=== PATIENT | female | born 1990 | race Caucasian/White ===

== ENCOUNTER 2018-01-02 09:43 | Inpatient (IN) | payer BC, OTHER ==
--- NOTE | 2018-01-02 18:58 | PDOC.LDHP ---
Labor and Delivery H&P Chief complaint: scheduled induction HPI: 27 yo G1 @ 40w0d by LMP c/w 10 week sono who presents for IOL for concern of possible developing FGR dx @ 39 weeks (EFW 19%, however, all measurements other than HC are < 10%). Antepartum course otherwise benign. Current gestational age (weeks): 40 Due date: 01/02/18 Dating criteria: last menstrual period Grav: 1 Para: 0 Current complications: other (Possible FGR vs constitutionally SGA) Abnormal US findings: No Past Medical History: Denies Current medications: none Previous surgical history: none Allergies/Adverse Reactions: Allergies Allergy/AdvReac Type Severity Reaction Status Date / Time No Allergy Information Allergy Verified 01/03/18 00:02 Available - Physical Exam Vital signs reviewed and normal: yes General: NAD Heart: RRR Lungs: nonlabored breathing Abdomen: gravid Extremeties: no edema FHT: category 1 [place] contractions every: q5 min per pt, no assessing well on monitor - Vaginal Exam cm dilated: 2 (balloon still in place ) - OB Labs Blood type: A RH: positive Antibody Screen: negative HIV: negative RPR: negative HEPSAg: negative 1 hour GCT: negative GBS: negative Urine drug screen: not done Rubella: immune - Assessment 40w0d IUP IOL for concern for possible developing FGR. - Plan Plan: admit to L&D, cervical ripening, informed consent obtained, anesthesia consult for pain management -: Will allow pt to ambulate with balloon as fetus has been cat 1 last night .
[2018-01-02] MEDS ORDERED: Carboprost 250 MCG/ML AMP IM PRN (22:36)
[2018-01-02] MEDS ORDERED: Promethazine HCl 25 MG/ML VIAL IM PRN (22:36)
[2018-01-02] MEDS ORDERED: Acetaminophen 500 MG TAB PO PRN (22:36)
[2018-01-02] MEDS ORDERED: NS / Oxytocin 40 units/1000ml 1,000 ML IV PRN (22:36)
[2018-01-02] MEDS ORDERED: HYDROcodone/Acetaminophen 5/325 mg Tablet PO PRN (22:36)
[2018-01-02] MEDS ORDERED: Butorphanol Tartrate 1 MG/ML VIAL SLOW IVP PRN (22:36)
[2018-01-02] MEDS ORDERED: Lidocaine 1% (PF) 30 ML VIAL SC PRN (22:36)
[2018-01-02] MEDS ORDERED: Methylergonovine 0.2 MG/ML VIAL IM PRN (22:36)
[2018-01-02] MEDS ORDERED: Ondansetron HCl/PF 4 MG/2 ML Vial IVP PRN (22:36)
[2018-01-02] MEDS ORDERED: Ibuprofen 800 MG TAB PO PRN (22:36)
[2018-01-02] MEDS ORDERED: Diphenoxylate HCl/Atropine Tablet PO PRN (22:36)
[2018-01-02] MEDS: Lactated Ringer's 1,000 ML IV SCH (22:36)
[2018-01-02] MEDS ORDERED: Misoprostol 200 MCG TAB PR PRN (22:36)
[2018-01-02 23:25] LABS: Hemoglobin 12.2 g/dL (12.0-16.0); Mean Corpuscular HGB CONC 33.6 g/dL (32.0-36.0); Mean Corpuscular Hemoglobin 30.8 pg (27.0-31.0); Mean Corpuscular Volume 91.5 fL (78.0-98.0); Mean Platelet Volume 6.8 fL (7.4-10.4); Platelet Count 413 thou/uL (130-400); RBC Distribution Width 12.1 % (11.5-14.5); Red Blood Cell (RBC) Count 3.95 mill/uL (4.20-5.40); White Blood Cell (WBC) Count 11.3 thou/uL (4.8-10.8)
[2018-01-03 00:07] LABS: HBSAg Index 0.17 S/CO (0-0.99); HIV (1/2) Antibody/Antigen Non-Reactive (NonReactive); HIV 1/2 INDEX 0.06 S/CO (<1.00); Hep B Surf Ag Non-Reactive S/CO (NonReactive); Syphilis Antibody Nonreactive (Nonreactive); Syphilis Antibody Index 0.04 S/CO (<1.00 Non-Reactive)
--- NOTE | 2018-01-03 03:24 | OP ---
TIME OF EVALUATION: 2340 hours until about 2355 hours. TIME OF BALLOON PLACEMENT: 2345 hours. COOK CERVICAL BALLOON TRANSVAGINAL PLACEMENT In brief, I was asked by Ofe Calderon D.O., the patient's physician, to please place a Cook cervic al balloon for cervical ripening. In brief, this is a primigravida, who is at term with a cervical e xam of /-3. I saw the patient at bedside at 2340 hours and discussed with her the benefits of [place] cervical balloon and its contraindications. No contraindications exist. heart tones were 1 40s and reactive. After explaining to the patient the Cook cervical balloon, the patient agreed to p krishna. I used a Graves metal speculum to visualize the cervix. The partner visualized the cervix with me after speculum placement. I then wiped the cervix clean with sterile castile soap. This wa s swabbed with a ring forceps and some 4 x 4s. Next, after confirming no vaginal lesions, no vaginal bleeding, and no evidence of ruptured membranes, I placed the Cook cervical balloon transcervically with ring forceps. No rupture of membranes or other complications occurred. I then placed 40 mL of sterile saline into the uterine balloon. I then pulled the second deflated balloon, which was her va ginal inflation out of the cervix per IFU instructions. At this time, I removed the speculum. I krishna alisha 20 mL into the vaginal balloon per protocol. At this time, the patient stated that she felt no p ain and Tg, the patient's nurse who was present for the procedure, stated that she would continue the "top-off" procedure. A 40 additional mL will be placed into the uterine balloon and 60 mL into the vaginal balloon for 80 mL total per balloon. The patient tolerated the procedure well and was co ntent for the procedure.
[2018-01-03] MEDS: Lactated Ringer's 1,000 ML IV SCH ×3 (04:51→13:21)
--- NOTE | 2018-01-03 10:23 | PDOC.LDPN ---
Labor & Delivery Progress Note - Subjective Subjective: comfortable - Objective Vital signs reviewed and normal: yes General: NAD, resting Uterine fundus: non tender SVE: 3-4 FHT: category 1 (130s, mod ginny, +accels, no decels ) [place] contractions every: q 8-9 min Other exam findings: Cook balloon still in place - Assessment (1) 40 weeks gestation of Code(s): Z3A.40 - 40 WEEKS GESTATION OF Current Visit: Yes Status : Acute (2) Encounter for induction of labor Code(s): Z34.90 - ENCNTR FOR SUPRVSN OF NORMAL , UNSP, UNSP TRIMESTER Current Visit: Yes Status: Acute -: Balloon due for removal @ 1145. Reviewed with pt that ctx are minimal. Recommend that start pitocin with balloon and plan for AROM at next appt. Pt considering. Continue plan of care.
[2018-01-03] MEDS ORDERED: NS w/ Oxytocin 10 units 500 ML IV SCH (10:30)
[2018-01-03] MEDS ORDERED: DISCONTINUE ALL PREVIOUS NARCOTICS FS SCH (10:45)
--- NOTE | 2018-01-03 11:09 | PDOC.LDPN ---
Labor & Delivery Progress Note - Subjective Subjective: comfortable - Objective Vital signs reviewed and normal: yes General: NAD Uterine fundus: non tender SVE: balloon removed Dilation: 5 Effacement: 50% Station: -2 FHT: category 2 [place] contractions every: rare ctx AROM: meconium stained fluid IUPC placed: yes FSE placed: yes Resuscitative measures: maternal oxygen, maternal position change - Assessment (1) 40 weeks gestation of Code(s): Z3A.40 - 40 WEEKS GESTATION OF Current Visit: Yes Status : Acute (2) Encounter for induction of labor Code(s): Z34.90 - ENCNTR FOR SUPRVSN OF NORMAL , UNSP, UNSP TRIMESTER Current Visit: Yes Status: Acute Plan: resuscitative measures -: Called regarding prolonged decel with boogie to 50s with resolution with position changes. Pitocin had not been started. Balloon removed and AROM done. Internals placed. Discussed continuous monitoring with pt and internals.
[2018-01-03] MEDS ORDERED: Promethazine HCl 25 MG/ML VIAL IM PRN (13:12)
[2018-01-03] MEDS ORDERED: diphenhydrAMINE 50 MG/ML VIAL IVP PRN (13:12)
[2018-01-03] MEDS ORDERED: Ondansetron HCl/PF 4 MG/2 ML Vial IVP PRN (13:12)
[2018-01-03] MEDS ORDERED: Acetaminophen 325 MG TAB PO PRN (13:12)
[2018-01-03] MEDS ORDERED: Eucerin (Mineral Oil/Petrolatum,White) 30 gm Jar TOP PRN (13:12)
[2018-01-03] MEDS ORDERED: ePHEDrine/0.9% NaCl/PF SYRINGE 50 mg/10 ml SLOW IVP PRN (13:12)
[2018-01-03] MEDS ORDERED: Lactated Ringer's 500 ML IV PRN (13:12)
[2018-01-03] MEDS ORDERED: Naloxone HCl 0.4 mg/ml Vial IVP PRN ×2 (13:12)
[2018-01-03] MEDS ORDERED: fentaNYL Citrate/PF 400 MCG, Bupivacaine 0.5% 20 ML in Sodium Chloride 0.9% 72 ML EPIDURAL SCH (13:15)
[2018-01-03] MEDS ORDERED: Communication Order-Pharmacy FS SCH (13:15)
[2018-01-03] MEDS: Bupivacaine 0.5% 20 ML, fentaNYL Citrate/PF 400 MCG in Sodium Chloride 0.9% 72 ML EPIDURAL SCH ×2 (13:22→20:05)
--- NOTE | 2018-01-03 16:00 | PDOC.LDPN ---
Labor & Delivery Progress Note - Subjective Subjective: comfortable - Objective Vital signs reviewed and normal: yes General: NAD, resting Uterine fundus: non tender Dilation: 5 Effacement: 75% Station: -2 FHT: category 2 (140s, minimal ginny, + accel with scalp stimulation, early decels ) [place] contractions every: q2-3 min, adequate MVUs - Assessment (1) 40 weeks gestation of Code(s): Z3A.40 - 40 WEEKS GESTATION OF Current Visit: Yes Status : Acute (2) Encounter for induction of labor Code(s): Z34.90 - ENCNTR FOR SUPRVSN OF NORMAL , UNSP, UNSP TRIMESTER Current Visit: Yes Status: Acute -: Overall, fetus reassuring. Continue pitocin. Adequate MVUs now.
[2018-01-04] MEDS ORDERED: Bicitra 30 ML UDCUP ONE (00:43)
[2018-01-04] MEDS ORDERED: CEFAZOLIN/Water 2 GM/20 ML SYRINGE ONE (00:43)
[2018-01-04] MEDS ORDERED: Lidocaine 2% 10 ML INJ ONE (00:49)
[2018-01-04] MEDS ORDERED: Oxytocin 10 UNITS/ML VIAL ONE (00:50)
[2018-01-04] MEDS ORDERED: Ondansetron HCl/PF 4 MG/2 ML Vial ONE (00:50)
[2018-01-04] MEDS ORDERED: Morphine PF 1 MG/ML SYR ONE (00:50)
--- NOTE | 2018-01-04 01:08 | PDOC.LDPN ---
Labor & Delivery Progress Note - Subjective Subjective: comfortable - Objective Vital signs reviewed and normal: yes General: NAD, resting Uterine fundus: non tender Dilation: 5-6 per my exam Effacement: 75% Station: -1 FHT: category 2 (150s, mod ginny, +accels, several late decels ) [place] contractions every: q2-4 min Other exam findings: suspect asynclytic Resuscitative measures: maternal oxygen, maternal IV fluids, maternal position change - Assessment (1) 40 weeks gestation of Code(s): Z3A.40 - 40 WEEKS GESTATION OF Current Visit: Yes Status : Acute (2) Encounter for induction of labor Code(s): Z34.90 - ENCNTR FOR SUPRVSN OF NORMAL , UNSP, UNSP TRIMESTER Current Visit: Yes Status: Acute -: Arrest of dilation @ 8 cm for > 8 hours. Adequate MVUS for majority of time without change and fetus displays episodes of intolerance to adequate labor requiring d/c of pitocin. Reviewed with pt and family and recommend a PLTCS, pt amenable.
[2018-01-04] MEDS ORDERED: Ondansetron HCl/PF 4 MG/2 ML Vial IVP PRN ×4 (01:17→05:51)
[2018-01-04] MEDS ORDERED: HYDROmorphone 2 MG/ML VIAL SLOW IVP PRN (01:17)
[2018-01-04] MEDS ORDERED: Meperidine HCl/PF 25 MG/ML VIAL SLOW IVP PRN (01:17)
[2018-01-04] MEDS ORDERED: Promethazine HCl 25 MG/ML VIAL IM PRN ×3 (01:18→05:51)
[2018-01-04] MEDS ORDERED: diphenhydrAMINE 50 MG/ML VIAL IVP PRN ×2 (01:18→05:51)
[2018-01-04] MEDS ORDERED: Ketorolac Tromethamine 30 MG/ML VIAL IVP PRN ×2 (01:18→05:51)
[2018-01-04] MEDS ORDERED: Eucerin (Mineral Oil/Petrolatum,White) 30 gm Jar TOP PRN (01:18)
[2018-01-04] MEDS ORDERED: Naloxone HCl 0.4 mg/ml Vial IV PRN ×4 (01:18→05:51)
[2018-01-04] MEDS ORDERED: Promethazine HCl 25 MG SUPP PR PRN ×2 (01:18→05:51)
[2018-01-04] MEDS ORDERED: Naloxone HCl 0.4 mg/ml Vial IVP PRN ×2 (01:18)
[2018-01-04] MEDS ORDERED: Ketorolac Tromethamine 30 MG/ML VIAL IVP SCH (01:30)
[2018-01-04] MEDS ORDERED: Communication Order-Pharmacy FS SCH (01:30)
[2018-01-04 01:54] LABS: Actual Bicarbonate (HCO3a) 24.5 mEq/L (22-28); Analyzer IN Cardio OR; Base Excess (BEa) -5.6 mEq/L (-2.0 to +3.0)
[2018-01-04] MEDS ORDERED: Azithromycin 500 MG in Sodium Chloride 0.9% 250 ML 250 ML IVPB SCH (02:00)
--- NOTE | 2018-01-04 02:07 | PDOC.OPDEL ---
OB Operative/Delivery Note Delivery Dr/Surgeon: Ofe Calderon DO Assist: Ray King MD Pre-Delivery Diagnosis: medically indicated induction (concern for FGR) Procedure/Post Delivery Dx: primary low transverse CS Weeks gestation: 40 Anesthesia: epidural - Findings A Sex: male - 1 min: 1 - 5 min: 5 - Additional Findings/Plan Placenta delivered: spontaneous Repaired Obstetrical Laceration: right labial findings: low transverse hysterotomy without extension, normal uterus, normal tubes, normal ovaries Estimated blood loss: QBL 390 cc Compilations/Other Findings: Infant in cephalic presentation with tight nuchal cord x 3 Thick meconium stained amniotic fluid Normal appearing placenta Post delivery plan: routine recovery (Dictation [id number])
[2018-01-04] MEDS ORDERED: Lanolin Ointment 7 GM TUBE TOP PRN (04:50)
[2018-01-04] MEDS ORDERED: NS / Oxytocin 40 units/1000ml 1,000 ML IV SCH (04:50)
[2018-01-04] MEDS ORDERED: Lactated Ringer's 1,000 ML IV SCH (04:50)
[2018-01-04] MEDS ORDERED: Bisacodyl 10 MG SUPP PR PRN (04:50)
[2018-01-04] MEDS ORDERED: Measles/Mumps/Rubella 10 MCG/0.5 ML VIAL SC ONE (04:50)
[2018-01-04] MEDS ORDERED: diphenhydrAMINE 25 MG CAP PO PRN (04:50)
[2018-01-04] MEDS ORDERED: Meperidine HCl/PF 25 MG/ML VIAL IM PRN (04:50)
[2018-01-04] MEDS ORDERED: HYDROcodone/Acetaminophen 5/325 mg Tablet PO PRN (04:50)
[2018-01-04] MEDS ORDERED: Adacel (T-DAP) 0.5 ML VIAL IM ONE (04:50)
[2018-01-04] MEDS ORDERED: Zolpidem Tartrate 5 MG TAB PO PRN (04:50)
[2018-01-04] MEDS: Ibuprofen 800 MG TAB PO SCH ×3 (05:49→20:39)
[2018-01-04] MEDS ORDERED: Hydrocerin (Eucerin) Cream 120 gm Jar TOP PRN (05:51)
[2018-01-04] MEDS ORDERED: NO PO,IM,IV OR SC NARCOTICS FOR 12HR EXCEPT BY ANESTHESIA PO SCH (05:51)
--- NOTE | 2018-01-04 08:35 | OP ---
PREOPERATIVE DIAGNOSES: 1. A 40-week intrauterine . 2. Concern for growth restriction. 3. Category 2 heart tracing. 4. Arrest of dilation at POSTOPERATIVE DIAGNOSES: 1. A 40-week intrauterine . 2. Small gestational age. 3. Category 2 heart tracing. 4. Arrest of dilation 5. Tight Nuchal cord x3. PROCEDURE: Primary low transverse delivery via Pfannenstiel skin incision. SURGEON: Ofe Calderon DO VENEER SLICING MACHINE OPERATOR: Ray King MD COMPLICATIONS: None. QUANTITATIVE BLOOD LOSS: 390 mL IV FLUIDS: 1400 mL URINE OUTPUT: 400 mL ANESTHESIA: Epidural with Duramorph. FINDINGS: Normal appearing uterus, fallopian tubes, and ovaries bilaterally. Thick meconium stained amniotic fluid. Viable male infant in cephalic presentation with a tight nuchal cord x3. Apgars 1, 5, and 8. Normal appearing placenta with a thin umbilical cord. INDICATIONS FOR THE PROCEDURE: Ms. Stacy Grant is a 27-year-old at 40 weeks and 0 day with a recent diagnosis of concern for possible growth restriction and was undergoing an induction of labor. The patient underwent cervical ripening with Cook balloon, followed by Pitocin augmentation. Throughout her labor course, the fetus displayed intermittent category 2 heart rate tracings with intermittent late decelerations that would resolve with position changes, fluid bolus and/or temporary discontinuation of the Pitocin. She remained unchanged for approximately 8 hours and was recommended for primary delivery due to arrest of dilation and category 2 tracing prohibiting further augmentation of labor. PROCEDURE IN DETAIL: The patient was brought to the operating room. She previously had an epidural which was additionally dosed and had a Hinton catheter in place. She was placed in supine position with a leftward tilt. heart tones were assessed in approximately 150s in the operating room. She was then prepped and draped in the sterile fashion. An official timeout was performed. The patient was given Ancef preoperatively for surgical prophylaxis and will receive azithromycin postoperatively for surgical prophylaxis. Anesthesia was assessed and proved to be adequate. A Pfannenstiel skin incision was made using the scalpel and this was carried down to the underlying fascial layer. The fascia was then incised in the midline and was extended bilaterally using West scissors. The superior aspect of the fascial incision was grasped using Karly clamps, tented upward and dissected free from the underlying rectus abdominis muscle and the same was performed to the inferior aspect of the fascial incision. The rectus abdominis muscles were bluntly and the peritoneum was entered in bluntly. Dung O retractor was then placed into the abdomen. A low transverse hysterotomy was made using the scalpel and the amniotic membranes were ruptured using blunt dissection, noting thick meconium amniotic fluid. The was then delivered in cephalic presentation. Infant did have a tight nuchal cord x3 which was reduced. The cord was clamped and cut. Infant was handed to the waiting Neonatology team. The cord sample for cord gases was obtained, cord blood was also obtained. The placenta was delivered spontaneously intact. The uterus was cleared of all clot and debris. Hysterotomy was closed in a running locking fashion, creating hemostasis. The pelvis was irrigated and cleared of all clot and debris. Hysterotomy was again evaluated and noted to be hemostatic. The bilateral fallopian tubes and ovaries were evaluated and noted to be normal in appearance. The Dung O retractor was removed from the abdomen. The peritoneum was closed in a running fashion. The rectus abdominis muscles were evaluated hemostatic. The fascia was closed in a running fashion using 0 PDS. The subcutaneous layer was copiously irrigated, hemostatic with use of the Bovie. Subcutaneous layer was closed using 2-0 chromic and the skin was closed using 4-0 Monocryl and Dermabond. The patient tolerated the procedure well. There were no complications. The baby and mother will be transferred to routine recovery. The details of the delivery were reviewed with both the patient and her family with the findings of a nuchal cord x3 contributing to the tracing and likely to arrest of dilation. HERNANDEZ
[2018-01-04] MEDS: Docusate Calcium (SURFAK) 240 MG CAP PO SCH (14:31)
[2018-01-04] MEDS: Prenatal Vitamin 1 TAB PO SCH (14:33)
[2018-01-04] MEDS: Simethicone Chewable 80 MG TAB PO PRN (20:38)
[2018-01-04] MEDS: HYDROcodone/Acetaminophen 5/325 mg Tablet PO PRN (20:38)
[2018-01-05] MEDS: Docusate Calcium (SURFAK) 240 MG CAP PO SCH ×3 (04:46→22:18)
[2018-01-05] MEDS: Ibuprofen 800 MG TAB PO SCH ×3 (05:34→21:33)
[2018-01-05 06:46] LABS: Hemoglobin 10.7 g/dL (12.0-16.0); Mean Corpuscular Volume 93.7 fL (78.0-98.0); Mean Platelet Volume 6.8 fL (7.4-10.4); Platelet Count 328 thou/uL (130-400); RBC Distribution Width 12.4 % (11.5-14.5); Red Blood Cell (RBC) Count 3.45 mill/uL (4.20-5.40); White Blood Cell (WBC) Count 14.7 thou/uL (4.8-10.8)
--- NOTE | 2018-01-05 08:16 | PDOC.PP ---
Post Progress Note Post Day #: 1 Subjective: Overall doing well. Pain moderate, improved with PO meds. Minimal-moderate lochia. Breast feeding. PO intake tolerated: yes Flatus: yes Ambulation: yes Vital Signs (12 hours) Temp Pulse Resp BP 01/05/18 04:00 98.2 F 77 18 98/53 L Weight Weight 5.609 oz - Physical Examination General: NAD Cardiovascular: no m/r/g, RRR Respiratory: non-labored breathing Abdominal: no distention, appropriately TTP Fundus firm & at: below umbilicus Extremities: negative homans (B) Skin: CS incision dry & intact Neurological: no gross focal deficits Psychiatric: A&Ox3, normal affect Result Diagrams: 01/05/18 05:58 Additional Labs: Post Labs Blood Type A POSITIVE 01/02/18 23:09 Hep Bs Antigen Non-Reactive S/CO (NonReactive) 01/02/18 23:09 (1) 40 weeks gestation of Code(s): Z3A.40 - 40 WEEKS GESTATION OF Status: Resolved (2) Encounter for induction of labor Code(s): Z34.90 - ENCNTR FOR SUPRVSN OF NORMAL , UNSP, UNSP TRIMESTER Status: Resolved (3) Arrest of dilation, delivered, current hospitalization Code(s): O62.1 - SECONDARY UTERINE INERTIA Status: Acute (4) delivery delivered Code(s): O82 - ENCOUNTER FOR DELIVERY WITHOUT INDICATION Status: Acute (5) Anemia Code(s): D64.9 - ANEMIA, UNSPECIFIED Status: Acute Qualifiers: Other causes of anemia: acute posthemorrhagic - Assessment/Plan PPD1 VSSAF Meeting PP milestones. Asking for possible d/c today, however, infant with episodes of hypoglycemia. Recommended possible d/c tomorrow unless infant cleared today.
[2018-01-05] MEDS: Simethicone Chewable 80 MG TAB PO PRN (09:46)
[2018-01-05] MEDS: Prenatal Vitamin 1 TAB PO SCH (09:46)
[2018-01-05] MEDS: HYDROcodone/Acetaminophen 5/325 mg Tablet PO PRN (14:05)
[2018-01-06] MEDS: Ibuprofen 800 MG TAB PO SCH ×2 (05:44→14:29)
--- NOTE | 2018-01-06 08:22 | PDOC.PP ---
Post Progress Note Post Day #: 2 Subjective: Doing well. No complaints. Pain controlled. Minimal lochia. Breast and formula supplement. PO intake tolerated: yes Flatus: yes Ambulation: yes Vital Signs (12 hours) Temp Pulse Resp BP Pulse Ox 01/06/18 00:00 98.3 F 68 18 103/55 L 99 Weight Weight 5.609 oz - Physical Examination General: NAD Cardiovascular: RRR Respiratory: non-labored breathing Abdominal: no distention, appropriately TTP Fundus firm & at: below umbilicus Extremities: negative homans (B) Skin: CS incision dry & intact Neurological: no gross focal deficits Psychiatric: A&Ox3, normal affect Result Diagrams: 01/05/18 05:58 Additional Labs: Post Labs Blood Type A POSITIVE 01/02/18 23:09 Hep Bs Antigen Non-Reactive S/CO (NonReactive) 01/02/18 23:09 (1) 40 weeks gestation of Code(s): Z3A.40 - 40 WEEKS GESTATION OF Status: Resolved (2) Encounter for induction of labor Code(s): Z34.90 - ENCNTR FOR SUPRVSN OF NORMAL , UNSP, UNSP TRIMESTER Status: Resolved (3) Arrest of dilation, delivered, current hospitalization Code(s): O62.1 - SECONDARY UTERINE INERTIA Status: Acute (4) delivery delivered Code(s): O82 - ENCOUNTER FOR DELIVERY WITHOUT INDICATION Status: Acute (5) Anemia Code(s): D64.9 - ANEMIA, UNSPECIFIED Status: Acute Qualifiers: Other causes of anemia: acute posthemorrhagic - Assessment/Plan PPD2 VSSAF Stable for d/c home when infant ready. receiving phototherapy currently. Anemia mild and expected for post op, continue PNVs.
[2018-01-06 08:34] VITALS: BP 99/59; TEMP 98.4
[2018-01-06] MEDS: Prenatal Vitamin 1 TAB PO SCH (08:59)
[2018-01-06] MEDS: Docusate Calcium (SURFAK) 240 MG CAP PO SCH (09:00)
== END 2018-01-06 18:05 | disposition home or self-care (01) | DRG 765 ==
LOC: EDSTATUS 15:27 → L&D 22:32 → 3SW 01-04 05:14 → UNDODISIN 01-06 14:05
PROVIDERS: ADMIT Obstetrics & Gynecology; ATTEND Obstetrics & Gynecology
PROC: 0U7C7ZZ Dilation of Cervix, Via Natural or Artificial Opening (ICD-10-PCS; 2018-01-02)
PROC: 10D00Z1 Extraction of Products of Conception, Low, Open Approach (ICD-10-PCS; principal; 2018-01-04)
DX: O62.0 Primary inadequate contractions (principal); D62 Acute posthemorrhagic anemia; O36.5930 Maternal care for other known or suspected poor fetal growth, third trimester, not applicable or unspecified; O69.1XX0 Labor and delivery complicated by cord around neck, with compression, not applicable or unspecified; Z3A.39 39 weeks gestation of pregnancy; Z37.0 Single live birth; O77.0 Labor and delivery complicated by meconium in amniotic fluid; O99.02 Anemia complicating childbirth
CPT/HCPCS: 36415; 51702; 82805; 85027; 86780; 86850; 86900; 86901; 87340; 87389; 88307; C1726; J0456; J1885; J2274; J2310; J2405; J2590; J3010; J3490; J7050

== ENCOUNTER 2023-05-03 15:47 | Outpatient (CLI) | payer BC ==
[2023-05-03 16:24] LABS: #Monocytes 0.5 10x3/uL (0.0-1.1); #Neutrophils 5.4 10x3/uL (1.5-8.4); %Basophils 0.5 % (0.0-2.0); %Eosinophils 0.5 % (0.0-6.0); %Lymphocytes 29.6 % (18.0-47.0); %Monocytes 5.7 % (0.0-10.0); %Neutrophils 63.5 % (40.0-75.0); Hematocrit 39.3 % (34.9-44.5); Hemoglobin 12.9 g/dL (12.0-15.5); Mean Corpuscular HGB CONC 32.8 g/dL (32.0-36.0); Mean Corpuscular Hemoglobin 30.2 pg (27.0-33.0); Mean Platelet Volume 9.7 fl (7.4-10.4); Platelet Count 387 10x3/uL (150-450); RBC Distribution Width 13.7 % (11.5-14.5); Red Blood Cell (RBC) Count 4.27 10x6/uL (3.90-5.03); White Blood Cell (WBC) Count 8.4 10x3/uL (3.5-10.5)
[2023-05-03 16:49] LABS: BHCG - Serum Negative (NEGATIVE); Pregs Control Background? CLEAR/WHITE (CLR/WHITE); Pregs Control Bar Appear? YES (CONTROL BAR)
[2023-05-03 17:04] LABS: ALT (SGPT) 16 U/L (8-55); AST (SGOT) 14 U/L (5-34); Albumin 4.4 g/dL (3.5-5.0); Alkaline Phosphatase 61 U/L (40-110); Anion Gap 13 mmol/L (10-20); BUN (Urea Nitrogen) 16 mg/dL (7.0-18.7); Bilirubin, Direct 0.2 mg/dL (0.1-0.3); Bilirubin, Total 0.4 mg/dL (0.2-1.2); Calc. Creatinine Clearance 0 mL/min (70-130); Calcium 9.3 mg/dL (7.8-10.44); Carbon Dioxide 25 mmol/L (22-29); Chloride 104 mmol/L (98-107); Estimated GFR 97; Globulin 3.1 g/dL (2.4-3.5); Glucose 88 mg/dL (70-105); Potassium 3.8 mmol/L (3.5-5.1); Protein, Total 7.5 g/dL (6.0-8.3); Sodium 138 mmol/L (136-145)
== END 2023-05-03 15:48 | disposition home or self-care (01) ==
LOC: LABBT 15:47
PROVIDERS: ATTEND Surgery
DX: Z01.812 Encounter for preprocedural laboratory examination (principal); K80.20 Calculus of gallbladder without cholecystitis without obstruction
CPT/HCPCS: 80053; 80076; 84703; 85025

== ENCOUNTER 2023-05-10 06:02 | Day surgery (SDC) | payer BC ==
[2023-05-10] MEDS ORDERED: EPINEPHrine 1 MG/ML VIAL ONE (06:45)
[2023-05-10] MEDS ORDERED: Indocyanine Green 25 MG/10 ML VIAL ONE (06:45)
[2023-05-10] MEDS ORDERED: Bupivacaine 0.25% HCL 30 ML VIAL ONE (06:46)
[2023-05-10] MEDS ORDERED: PROPOFOL 20 ML ONE (06:55)
[2023-05-10] MEDS ORDERED: fentaNYL PF 100 MCG/2 ML SYRINGE ONE (06:55)
[2023-05-10] MEDS ORDERED: Lidocaine 1% PF 5 ML VIAL ONE (07:01)
[2023-05-10] MEDS ORDERED: Rocuronium Bromide 10 MG/ML (10ML VIAL) ONE (07:01)
[2023-05-10] MEDS ORDERED: Sodium Chloride 0.9% 100 ML ONE (07:27)
[2023-05-10] MEDS ORDERED: cefOXitin 2 GM VIAL ONE (07:27)
[2023-05-10] MEDS ORDERED: Glycopyrrolate 0.2 MG/ML 5 ML SYRINGE ONE (07:50)
[2023-05-10] MEDS ORDERED: PHENYLEPHRINE-NS 100 MCG/ML 10 ML SYRINGE ONE (07:50)
[2023-05-10] MEDS ORDERED: ePHEDrine Sulfate 50 MG/10 ML VIAL ONE (07:51)
[2023-05-10] MEDS ORDERED: Ondansetron PF 4 MG/2 ML Vial ONE (07:56)
[2023-05-10] MEDS ORDERED: Dexamethasone 20 MG/5 ML VIAL ONE (07:56)
[2023-05-10] MEDS ORDERED: SUGAMMADEX SODIUM 200 MG/2 ML VIAL ONE (08:13)
[2023-05-10] MEDS ORDERED: Ketorolac Tromethamine 30 MG (1 mL) VIAL ONE (08:13)
[2023-05-10] MEDS ORDERED: fentaNYL 50 mcg/mL 1 mL Vial ONE ×2 (08:50→09:18)
[2023-05-10] MEDS ORDERED: HYDROcodone/Acetaminophen 5/325 mg Tablet ONE (09:52)
== END 2023-05-10 10:30 | disposition home or self-care (01) ==
LOC: SDC 06:02
PROVIDERS: ATTEND Surgery
PROC: 0FT44ZZ Resection of Gallbladder, Percutaneous Endoscopic Approach (ICD-10-PCS; principal; 2023-05-10)
DX: K80.10 Calculus of gallbladder with chronic cholecystitis without obstruction (principal); Z88.1 Allergy status to other antibiotic agents
CPT/HCPCS: 88304; J0171; J0665; J0694; J1100; J1885; J2405; J2704; J3010; J3490

== ENCOUNTER 2023-05-10 17:56 | Emergency (ER) | payer BC ==
[~2023-05-10 17:56] MED LIST: Iopamidol-370 76% 500 ML MDV (1 ML CHARGE) ONE
[2023-05-10] MEDS ORDERED: Ondansetron PF 4 MG/2 ML Vial ONE (18:58)
[2023-05-10] MEDS ORDERED: Morphine 4 MG/ML VIAL ONE (18:58)
[2023-05-10 19:16] LABS: #Monocytes 0.1 thou/uL (0.11-0.59); %Basophils 0.1 % (0.0-1.0); %Lymphocytes 7.2 % (21.0-51.0); %Neutrophils 91.4 % (42.0-75.0); Hemoglobin 11.7 g/dL (12.0-16.0); Mean Corpuscular HGB CONC 32.5 g/dL (32.0-36.0); Mean Corpuscular Hemoglobin 30.2 pg (27.0-31.0); Mean Platelet Volume 9.9 fL (7.4-10.4); Platelet Count 307 10x3/uL (130-400); RBC Distribution Width 13.8 % (11.5-14.5); Red Blood Cell (RBC) Count 3.87 mill/uL (4.20-5.40); White Blood Cell (WBC) Count 8.8 10x3/uL (4.8-10.8)
[2023-05-10 19:40] LABS: ALT (SGPT) 33 U/L (8-55); AST (SGOT) 31 U/L (5-34); Albumin 3.8 g/dL (3.5-5.0); Alkaline Phosphatase 49 U/L (40-110); Anion Gap 12 mmol/L (10-20); BUN (Urea Nitrogen) 10 mg/dL (7.0-18.7); Bilirubin, Total 0.4 mg/dL (0.2-1.2); Calc. Creatinine Clearance 0 mL/min (70-130); Calcium 8.3 mg/dL (7.8-10.44); Carbon Dioxide 22 mmol/L (22-29); Chloride 103 mmol/L (98-107); Estimated GFR 116; Glucose 129 mg/dL (70-105); Lipase 15 U/L (8-78); Protein, Total 6.8 g/dL (6.0-8.3); Sodium 133 mmol/L (136-145)
[2023-05-10] MEDS ORDERED: Ketorolac Tromethamine 30 MG (1 mL) VIAL ONE (21:08)
== END 2023-05-10 22:36 | disposition home or self-care (01) ==
LOC: ERS 17:56
DX: K91.0 Vomiting following gastrointestinal surgery (principal)
CPT/HCPCS: 36415; 74160; 80053; 83690; 85025; 96361; 96374; 96375; J1885; J2270; J2405; Q9967